=== PATIENT | male | born 1995 | race African-American/Black ===

== ENCOUNTER 2024-03-05 14:00 | Emergency (ER) | payer OTHER ==
[~2024-03-05] VITALS: Ht 188 cm; Wt 91.0 kg
[2024-03-05 14:30] VITALS: O2SAT 98
[2024-03-05 17:43] VITALS: BP 128/57; PULSE 62; RESP 16; TEMP 36.83628; O2SAT 98
== END 2024-03-05 17:44 | disposition home or self-care (01) ==
LOC: ER 14:00
DX: M54.50 Low back pain, unspecified (principal); J45.909 Unspecified asthma, uncomplicated; Z98.890 Other specified postprocedural states
CPT/HCPCS: 99281